=== PATIENT | male | born 1995 ===

== ENCOUNTER 2021-10-24 08:36 | Emergency (ER) | payer MEDICARE | END 2021-10-24 20:00 | LOC: ED 08:36 | DX: R45.851 Suicidal ideations (principal); Z53.21 Procedure and treatment not carried out due to patient leaving prior to being seen by health care provider ==

== ENCOUNTER 2021-11-01 15:00 | Emergency (ER) | payer MEDICARE ==
[2021-11-01] MEDS ORDERED: LORazepam 2 MG/ML VIAL IM STA (16:05)
--- NOTE | 2021-11-01 16:09 | Emergency Department Report ---
<ARAM FARRELL - Last Filed: 11/03/21 11:33> ED Psych HPI - General Chief Complaint: Psych Stated Complaint: SI Time Seen by Provider: 11/01/21 15:59 - Related Data Home Medications Medication Instructions Recorded Confirmed Last Taken Citalopram Hydrobromide [celeXA] 60 mg PO QHS 11/01/21 11/01/21 Unknown Gabapentin [Neurontin] 900 mg PO TID 11/01/21 11/01/21 Unknown Lurasidone HCl [Latuda] 80 mg PO QHS 11/01/21 11/01/21 Unknown Previous Rx's Medication Instructions Recorded Last Taken Type Gabapentin 300 mg PO BID 30 Days #60 cap 11/03/21 Unknown Rx Lurasidone HCl [Latuda] 40 mg PO QDAY 30 Days #30 tablet 11/03/21 Unknown Rx Allergies Allergy/AdvReac Type Severity Reaction Status Date / Time No Known Allergies Allergy Unverified 11/01/21 15:20 ED Past Medical Hx - Medications Home Medications: Home Medications Medication Instructions Recorded Confirmed Last Taken Type Citalopram Hydrobromide [celeXA] 60 mg PO QHS 11/01/21 11/01/21 Unknown History Gabapentin [Neurontin] 900 mg PO TID 11/01/21 11/01/21 Unknown History Lurasidone HCl [Latuda] 80 mg PO QHS 11/01/21 11/01/21 Unknown History Gabapentin 300 mg PO BID 30 Days #60 cap 11/03/21 Unknown Rx Lurasidone HCl [Latuda] 40 mg PO QDAY 30 Days #30 tablet 11/03/21 Unknown Rx ED Course - Reevaluation(s) Reevaluation #1: 11/03/21 11:33 Psychiatry Progress Note Patient Name: PATRICIA SNIDER Date of : 89 Patient Status: Emergency Emergency Provider: EBLA FARRELL Date: 11/03/21 11:02 Initialization Date: 11/03/21 11:02 Subjective - Reason for Consult Consult date: 11/03/21 Reason for consult: mental health evaluation - Chief Complaint Chief complaint: The patient is seen this morning, he continues to complain of pain to his toes, fingers, throat and back. The patient denies any current suicidal/homicidal ideation and denies hallucinations. REVIEW OF SYSTEMS Constitutional: Negative for weight loss ENT: Negative for stridor Respiratory: Negative for cough or hemoptysis All other systems reviewed and are negative MENTAL STATUS EXAMINATION General Appearance and Behavior: Age appropriate, good hygiene, wearing appropriate clothes, sleeping, cooperative Cooperation: cooperative Psychomotor Behavior: unremarkable and within normal limits Mood:" ok" Affect and affective range: Incongruent with mood Thought Process:Goal directed Thought Content: Suicidal Speech: Normal volume, Regular rate and rhythm, Suicidal Ideation: Yes Homicidal Ideation:Denies Hallucinations: Denies Delusions: None elicited Impulse Control: normal Insight and Judgment: Limited insight and poor judgment, Memory: Normal, Attention: Normal Orientation: Alert, oriented Assessment and Plan (1)Bipolar disorder Treatment plan discontinue 1013 Continue home meds Risks, benefits and alternatives of medications discussed with the patient, questions answered and consent obtained from patient. PSYCHOTHERAPY: Supportive psychotherapy provided MEDICAL: Per primary team DELIRIUM PRECAUTIONS: Please re-orient patient frequently, keep lights on during the day, and minimize benzodiazepines and opiates as these medications could worsen patient's confusion. HEDGE FUND TRADER: Defer to primary Disposition: Do not recommend acute psychiatric inpatient treatment. Will sign off. Thank you for the consult. Please contact with any questions and/or concerns. Case staffed with Dr. Nolan Reevaluation #2: 11/03/21 11:34 Patient no longer appears intoxicated from methamphetamines. Patient is not en dorsing any homicidal suicidal ideations at this time. Patient appears stable for discharge. ED Medical Decision Making - Lab Data Result diagrams: 11/01/21 16:03 11/01/21 16:03 - Medical Decision Making Patient was monitored and has reached full sobriety from methamphetamines. His 2013 is been rescinded. Patient stable for discharge. ED Disposition Clinical Impression: Methamphetamine intoxication, Suicidal ideation, Passive suicidal ideations Disposition: 01 HOME / SELF CARE / HOMELESS Is pt being admited?: No Does the pt Need Aspirin: No Condition: Stable Instructions: Amphetamines Use Disorder, Suicidal Feelings: How to Help Yourself Additional Instructions: Professional and Agency Contacts To help [facility](12/06) [place] Crisis Line: Suicide Prevention Line: Crisis Text Line: Text START to [phone] Emergency: 911 Outpatient COMMUNITY Behavioral Health Resources: [place]: [facility] [address] [place], [place] [address] [place]: [facility] - [facility] [address] [place] [address] [place]: [facility] - [address] [place] [address] Monday thru Monday - 8am - 5pm [place]: [facility] Service Address: [address] [place] [address] [place]: [facility] Address: [address] [place] [address] Monday thru Monday- 7am-2pm [facility] Address: [address] [place] [address] Monday thrmonday: 8:30AM-5PM In case of an emergency, please contact the following numbers: [place] Crisis and Access Line: Number: Crisis Text Line: (Text START) Number: 559883 Suicide Prevention Line: Number: Emergency Number: 911 SUBSTANCE ABUSE PROGRAMS: [facility]: Location: [place], [place] [facility] Address: [address] [place] [id number] [facility] Recovery: Address: [address] [place] [address] [facility] Adult Rehabilitation: Address: [address] [place] [address] [facility] Community: Address: [address] [place] [address] [facility] Address: [address] [place] [address]. Please contact above numbers to attempt placement into free based program. Medicaid Programs: [facility]: Address: [address] [place] [address] [facility]: Address: [address] [place], [place] [id number] Prescriptions: Gabapentin 300 mg PO BID 30 Days #60 cap Lurasidone HCl [Latuda] 40 mg PO QDAY 30 Days #30 tablet Time of Disposition: 11:35 <ELBA FARRELL - Last Filed: 11/06/21 06:34> ED Psych HPI - General Source: patient Mode of arrival: Ambulatory Limitations: No Limitations - History of Present Illness Initial Comments: CC: "I'm coming down off of meth." HPI: This is a 26 yo male With history of depression, anxiety, schizoaffective disorder, methamphetamine abuse and homelessness who presents with methamphetamine intoxication. I obtained history 1 hour after patient's arrival. He stated that he is "homeless. I live in in an abando." He was at [facility]. . He stated that someone must have noticed that he was high. He denies suicidal ideation at this time. However he does admit to still feeling high. MD Complaint: suicidal ideation, altered mental status Associated Psychiatric Symptoms: suicidal ideation, racing thoughts Quality: constant Context: recent drug abuse Associated Symptoms: denies other symptoms ED Review of Systems ROS: Stated complaint: SI Other details as noted in HPI Comment: All other systems reviewed and negative Constitutional: denies: chills, fever, malaise ENT: denies: throat pain Respiratory: denies: cough, shortness of breath Cardiovascular: denies: chest pain Psychiatric: suicidal thoughts ED Past Medical Hx - Past Medical History Previous Medical History?: Yes Hx Psychiatric Treatment: Yes (DEPRESSION/ MOOD SWINGS/ ANXIETY/ SHCIZO EFFECTIVE DISORDER) - Surgical History Past Surgical History?: No - Social History Smoking Status: Current Every Day Smoker Substance Use Type: Alcohol, Marijuana, Methamphetamines ED Physical Exam - General Limitations: No Limitations General appearance: alert, in no apparent distress, appears intoxicated, other (Paranoid anxious disheveled poor hygiene cooperative) - Head Head exam: Present: atraumatic, normocephalic - Eye Eye exam: Present: normal appearance - ENT ENT exam: Present: mucous membranes moist - Neck Neck exam: Present: normal inspection, full ROM - Respiratory Respiratory exam: Present: normal lung sounds bilaterally. Absent: respiratory distress, wheezes, rales, rhonchi, stridor - Cardiovascular Cardiovascular Exam: Present: regular rate, normal rhythm, normal heart sounds. Absent: systolic murmur, diastolic murmur, rubs, gallop - GI/Abdominal GI/Abdominal exam: Present: soft, normal bowel sounds - Rectal Rectal exam: Present: deferred - Extremities Exam Extremities exam: Present: normal inspection - Back Exam Back exam: Present: normal inspection - Neurological Exam Neurological exam: Present: alert, oriented X3 - Psychiatric Psychiatric exam: Present: anxious - Skin Skin exam: Present: warm, dry, intact, normal color. Absent: rash ED Course Vital Signs 11/01/21 11/01/21 11/02/21 15:24 15:31 01:51 Temperature 97.7 F 98.8 F Pulse Rate 100 H 89 Respiratory 16 18 Rate Blood Pressure 112/80 129/86 [Right] O2 Sat by Pulse 98 98 96 Oximetry 11/02/21 11/03/21 19:53 05:38 Temperature 98.1 F Pulse Rate 79 Respiratory 18 18 Rate Blood Pressure 115/62 [Right] O2 Sat by Pulse 98 98 Oximetry ED Medical Decision Making - Lab Data Result diagrams: 11/01/21 16:03 11/01/21 16:03 - Medical Decision Making Methamphetamine intoxication: Patient admitted to "being high on meth according to triage note he was trying to kill himself by banging himself in the head. He reported overdose of Neurontin and Thorazine. Patient states to me that he was high on methamphetamine. Patient currently has normal vital signs. Will observe patient for clinical deterioration. I discussed case with mental health cuprous chloride operator. Mental health cuprous chloride operator recommended 2013 status. She agrees that patient is clinically intoxicated. We will reassess patient from mental health standpoint once fully sober. I have reviewed labs CBC chemistry salicylate acetaminophen and alcohol levels unremarkable Patient has been observed for 6 hours without cardiovascular collapse. Do not suspect lethal drug overdose. Patient is medically clear for psychiatric care. Critical care attestation.: If time is entered above; I have spent that time in minutes in the direct care of this critically ill patient, excluding procedure time. ED Disposition Is pt being admited?: No Does the pt Need Aspirin: No
[2021-11-01 16:55] LABS: BUN/Creatinine Ratio 20; Blood Urea Nitrogen 16 mg/dL (9-20); Calcium 9.8 mg/dL (8.4-10.2); Hemolysis Index 65
[2021-11-01 17:33] LABS: Eosinophils % (Auto) 0.7 % (0.0-4.3); Hematocrit 39.1 % (35.5-45.6); Hemoglobin 12.8 gm/dl (11.8-15.2); Lymphocytes # (Auto) 1.7 K/mm3 (1.2-5.4); Lymphocytes % (Auto) 26.8 % (13.4-35.0); Mean Corpuscular HGB Conc 33 % (32-34); Mean Corpuscular Volume 92 fl (84-94); Monocytes # (Auto) 0.9 K/mm3 (0.0-0.8); Monocytes % (Auto) 14.7 % (0.0-7.3); Platelet Count 262 K/mm3 (140-440); Red Blood Count 4.26 M/mm3 (3.65-5.03); Red Cell Distribution Width 13.3 % (13.2-15.2)
[2021-11-01] MEDS ORDERED: ZIPRASIDONE MESYLATE 20 MG VIAL IM STA (18:54)
[2021-11-02] MEDS ORDERED: ZIPRASIDONE MESYLATE 20 MG VIAL IM ONE ×2 (10:13→10:40)
--- NOTE | 2021-11-02 11:02 | Consultation ---
History of Present Illness - Reason for Consult Consult date: 11/02/21 Reason for consult: mental health evaluation - History of Present Psychiatric Illness ED Note: This is a 26 yo male With history of depression, anxiety, schizoaffective disorder, methamphetamine abuse and homelessness who presents with methamphetamine intoxication. I obtained history 1 hour after patient's arrival. He stated that he is "homeless. I live in in an [place]." He was at [facility]. . He stated that someone must have noticed that he was high. He denies suicidal ideation at this time. However he does admit to still feeling high. The patient was seen this morning being loud, agitated and pacing. The patient presents with disorganized thoughts. Geodon IM was administered for agitation. PAST PSYCHIATRIC HISTORY: Unable to assess PAST MEDICAL HISTORY: Unable to assess Family Psychiatric History: Unable to assess SOCIAL HISTORY REVIEW OF SYSTEMS: Unable to assess MENTAL STATUS EXAMINATION:Unable to assess Assessment and Plan (1) (2) Treatment Plan Continue 1013 Sitter: per primary Medical: per primary Disposition:Recommend acute psychiatric inpatient treatment. Will follow. Thanks Case staffed with Dr. Nolan Medications and Allergies Medications and Allergies Allergies Allergy/AdvReac Type Severity Reaction Status Date / Time No Known Allergies Allergy Unverified 11/01/21 15:20 Home Medications Medication Instructions Recorded Confirmed Last Taken Type Citalopram Hydrobromide [celeXA] 60 mg PO QHS 11/01/21 11/01/21 Unknown History Gabapentin [Neurontin] 900 mg PO TID 11/01/21 11/01/21 Unknown History Lurasidone HCl [Latuda] 80 mg PO QHS 11/01/21 11/01/21 Unknown History Mental Status Exam - Vital signs Last Vital Signs Temp 98.8 F 11/02/21 01:51 Pulse 89 11/02/21 01:51 Resp 18 11/02/21 01:51 BP 129/86 11/02/21 01:51 Pulse Ox 96 11/02/21 01:51 Results Result Diagrams: 11/01/21 16:03 11/01/21 16:03 Abnormal lab results 11/01/21 11/01/21 11/01/21 Range/Units 16:03 16:03 16:03 [place] % (Auto) 14.7 H (0.0-7.3) % [place] # (Auto) 0.9 H (0.0-0.8) K/mm3 Salicylates < 0.3 L (2.8-20.0) mg/dL Acetaminophen 5.0 L (10.0-30.0) ug/mL All other labs normal.
[2021-11-02 11:58] LABS: Benzodiazepines Screen,Urine Negative; Cocaine Screen,Urine Negative; Methadone Screen,Urine Negative; Opiate Screen,Urine Negative
[2021-11-02 12:03] LABS: Bacteria,Urine 1+ /HPF (Negative); Bilirubin,Urine NEG (Negative); Blood,Urine NEG (Negative); Color,Urine Yellow (Yellow); Protein,Urine <15 mg/dL mg/dL (Negative); Urobilinogen,Urine < 2.0 mg/dL (<2.0)
--- NOTE | 2021-11-02 12:03 | Event Note ---
Date: 11/02/21 Patient seen by psychiatry this morning. No reported new events since this a.m. Awaiting completion of evaluation by psychiatry for possible placement.
[2021-11-02 12:43] LABS: Amphetamine Screen,Urine Positive; Cannabinoid Screen,Urine Positive
[2021-11-02 19:54] VITALS: BP 115/62
[2021-11-03] MEDS ORDERED: IBUPROFEN 800 MG TAB ONE (08:25)
[2021-11-03] MEDS ORDERED: IBUPROFEN 800 MG TAB PO ONE (08:31)
--- NOTE | 2021-11-03 11:06 | Progress Note ---
Subjective - Reason for Consult Consult date: 11/03/21 Reason for consult: mental health evaluation - Chief Complaint Chief complaint: The patient is seen this morning, he continues to complain of pain to his toes, fingers, throat and back. The patient denies any current suicidal/homicidal ideation and denies hallucinations. REVIEW OF SYSTEMS Constitutional: Negative for weight loss ENT: Negative for stridor Respiratory: Negative for cough or hemoptysis All other systems reviewed and are negative MENTAL STATUS EXAMINATION General Appearance and Behavior: Age appropriate, good hygiene, wearing a ppropriate clothes, sleeping, cooperative Cooperation: cooperative Psychomotor Behavior: unremarkable and within normal limits Mood:" ok" Affect and affective range: Incongruent with mood Thought Process:Goal directed Thought Content: Suicidal Speech: Normal volume, Regular rate and rhythm, Suicidal Ideation: Yes Homicidal Ideation:Denies Hallucinations: Denies Delusions: None elicited Impulse Control: normal Insight and Judgment: Limited insight and poor judgment, Memory: Normal, Attention: Normal Orientation: Alert, oriented Assessment and Plan (1)Bipolar disorder Treatment plan discontinue 1013 Continue home meds Risks, benefits and alternatives of medications discussed with the patient, questions answered and consent obtained from patient. PSYCHOTHERAPY: Supportive psychotherapy provided MEDICAL: Per primary team DELIRIUM PRECAUTIONS: Please re-orient patient frequently, keep lights on during the day, and minimize benzodiazepines and opiates as these medications could worsen patient's confusion. CARD BRUSHER: Defer to primary Disposition: Do not recommend acute psychiatric inpatient treatment. Will sign off. Thank you for the consult. Please contact with any questions and/or concerns. Case staffed with Dr. Nolan Mental Status Exam - Vital signs Last Vital Signs Temp 98.1 F 11/02/21 19:53 Pulse 79 11/02/21 19:53 Resp 18 11/03/21 05:38 BP 115/62 11/02/21 19:53 Pulse Ox 98 11/03/21 05:38
== END 2021-11-03 12:25 | disposition home or self-care (01) ==
LOC: EDUNIT# → ED 15:00
DX: R45.851 Suicidal ideations (principal); F15.120 Other stimulant abuse with intoxication, uncomplicated; Z20.822 Contact with and (suspected) exposure to COVID-19; F17.200 Nicotine dependence, unspecified, uncomplicated; F12.90 Cannabis use, unspecified, uncomplicated; Z72.89 Other problems related to lifestyle; Z79.899 Other long term (current) drug therapy
CPT/HCPCS: 36415; 80048; 80307; 81001; 85025; 96372; 99284; J2060; J3486; U0003; 80320; G0480